=== PATIENT | female | born 1970 | race Caucasian/White ===

== ENCOUNTER 2016-06-27 10:43 | Emergency (ER) | payer BC, OTHER ==
[~2016-06-27] VITALS: Ht 157.5 cm; Wt 65.0 kg
[2016-06-27 10:48] VITALS: Ht 157.5 cm; Wt 65.0 kg
[2016-06-27] MEDS ORDERED: ONDANSETRON (ODT) 4 MG TAB ODT STA (12:12)
[2016-06-27] MEDS ORDERED: MECLIZINE 12.5 MG TAB PO ONE (12:30)
--- NOTE | 2016-06-27 12:44 | RADRPT ---
PROCEDURE: CT Brain without contrast. CLINICAL INDICATION: Pain, headache TECHNIQUE: Routine CT scan of the brain was performed on a high resolution multi detector scanner without intravenous contrast. One or more of the following dose reduction techniques were used: Auto mated exposure control; Adjustment of the mA and/or kV according to patient size; Use of iterative r econstruction technique. CTDI = 45 mGy. DLP = 630 mGy-cm. COMPARISON: No prior relevant examinations are available for comparison. FINDINGS: Hemorrhage: No evidence of intracranial hemorrhage. Acute ischemic changes: No evidence of acute ischemic changes. Mass effect/Midline shift: None. Parenchymal volume: Within normal limits for age. Ventricular system: Concordant with parenchymal volume. Chronic changes: Parenchymal attenuation is within normal limits. Extracranial soft tissues: Unremarkable. Calvarium: No fractures. Paranasal sinuses: Minimal mucosal thickening bilateral maxillary sinuses and ethmoid air cells. Mastoid air cells: Visualized mastoid air cells are clear. IMPRESSION: No acute intracranial abnormalities. Normal appearance the brain parenchyma. RPTAT: AADD .Jerrod Oden MD, MD Date Time Electronically viewed and signed by .Jerrod Oden MD, on 06/27/2016 12:44 .B/
[2016-06-27] MEDS ORDERED: MECL-77 PO (13:20)
--- NOTE | 2016-06-27 13:26 | ERD ---
ER Documentation Chief Complaint Date/Time DATE: 06/27/16 TIME: 13:23 Chief Complaint dizziness x 4 days, no med hx HPI Patient is an otherwise healthy 46-year-old female who presents with headache and dizziness now has been on and off for 4 days. She states she feels like the room is spinning and is worse when he changes positions of her head especially from bending her neck down to raising her head. She denies any vomiting. She denies any chest pain or shortness of breath. Denies fever. Denies any changes to her vision. ROS All systems reviewed and are negative except as per history of present illness. Medications Home Meds Active Scripts Meclizine Hcl* (Meclizine Hcl*) 25 Mg Tablet, 25 MG PO Q8H Y for DIZZINESS, #30 TAB Prov:MARANDA OCONNELL PA-C 06/27/16 PMhx/Soc Medical and Surgical Hx: pt denies Medical Hx Hx Alcohol Use: No Hx Substance Use: No Hx Tobacco Use: No FmHx Family History: No diabetes Physical Exam Vitals Vital Signs Date Time Temp Pulse Resp B/P Pulse Ox O2 Delivery O2 Flow Rate FiO2 06/27/16 10:48 98.1 70 20 155/84 99 Physical Exam General: well developed, well nourished, alert, nontoxic, no distress Head: normocephalic, atraumatic Eyes: PERRL, normal conjunctiva Neck: Supple, nontender, no lymphadenopathy, no midline tenderness Ears: no tenderness over mastoids bilaterally, TMs nonerythematous, no exudates in canal Respiratory: Clear to auscaultation bilaterally, speaks in full sentences, no use of accesory muscles or labored breathing, no rales, ronchi, or wheezing Cardiovascular: RRR, No murmurs GI: soft, non tender, non distended, negative murphys sign, negative mcburneys point tenderness, no cva tenderness bilaterally, no rebound or guarding Back: no midline tenderness, no step offs or bony abnormalities, sensation to light touch in tact Extremities: moving all extremities normally, normal gait, no edema Neuro: CN 2-12 intact, normal speech, 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 Her blood pressure is elevated 155/84 further no signs of hypertensive urgency or emergency. The rest of her examination is benign. EKG was normal with her rate is 67 normal sinus rhythm with no evidence of ST elevation or acute ischemic changes and normal axis. Her neurological examination is normal. CT scan was normal. She was given Zofran and meclizine and at discharge stated she felt much better. Accu-Chek was normal. Signs and symptoms are most consistent with a bpv she is treated outpatient with meclizine.Recommended this patient follow up with her primary care doctor within 48 hours or return to the emergency room for any worsening of symptoms. However this time I do believe there is suitable for outpatient management. I answered all their questions and they agreed with the plan and were discharged home. Departure Diagnosis: Primary Impression: Benign positional vertigo Condition: Stable Patient Instructions: Benign Positional Vertigo Additional Instructions: Llame al doctor [place] y alayna baylee TORI PARA DENTRO DE 1-2 WELLER.Dgale a la secretaria que nosotros le instruimos hacer esta tori.Avise o llame si gonzáles condicin se empeora antes de la tori. Regresa aqui si peor o no mejor. MARANDA OCONNELL PA-C Jun 27, 2016 13:26
[2016-06-27 13:42] VITALS: BP 135/75; PULSE 77; RESP 18
== END 2016-06-27 13:43 | disposition home or self-care (01) ==
LOC: FTE 10:43
DX: H81.10 Benign paroxysmal vertigo, unspecified ear (principal)
CPT/HCPCS: 70450; 82962; 93005; Z7502; Z7610